=== PATIENT | female | born 1990 | race Caucasian/White ===

== ENCOUNTER → 2023-08-17 15:03 | Outpatient (CLI) | payer BC, SELFPAY | PROVIDERS: PCP Nurse Practitioner Family; Visit Provider Nurse Practitioner Family | DX: R40.0 Somnolence (principal); G47.30 Sleep apnea, unspecified; R06.83 Snoring | CPT/HCPCS: G0399 ==

== ENCOUNTER 2023-12-29 12:08 | Outpatient (CLI) | payer BC, SELFPAY ==
[2023-12-29 14:28] LABS: HCG,Quantitative < 2 mIU/ml (0-5.42)
== END 2023-12-29 23:59 | disposition home or self-care (01) ==
LOC: LAB 12:10
PROVIDERS: PCP Nurse Practitioner Family; Visit Provider Obstetrics & Gynecology
DX: N92.6 Irregular menstruation, unspecified (principal)
CPT/HCPCS: 36415; 84702

== ENCOUNTER 2024-04-30 16:34 | Outpatient (CLI) | payer BC, SELFPAY ==
[2024-04-30 22:40] LABS: Basophils % 0.6 % (0.1-2.0); Eosinophils # 0.1 K/mm3 (0.0-0.4); Eosinophils % 1.4 % (0.1-12.0); Hematocrit 40.9 % (37.0-47.0); Hemoglobin 14.1 g/dL (12.2-16.2); Lymphocytes # 1.3 K/mm3 (0.7-4.5); Lymphocytes % 18.3 % (10-50); Mean Corpuscular HGB Conc 34.4 g/dL (31.8-35.4); Mean Corpuscular Hemoglobin 30.1 pg (27.0-31.2); Mean Corpuscular Volume 87.6 fl (81-99); Mean Platelet Volume 9.5 fl (7.4-10.4); Monocytes # 0.5 K/mm3 (0.1-1.0); Monocytes % 6.3 % (1.7-9.3); Neutrophils # 5.2 K/mm3 (1.8-7.8); Neutrophils % 73.3 % (37.0-80.0); Platelet Count 245 K/mm3 (142-424); Red Blood Count 4.67 M/mm3 (4.20-5.40); Red Cell Distribution Width 13.8 % (11.5-17.5); White Blood Count 7.1 K/mm3 (4.8-10.8)
[2024-04-30 23:21] LABS: Albumin Level 4.7 g/dl (3.5-5.0); Chloride 102 mmol/L (98-107); Potassium 4.3 mmoL/L (3.5-5.1); Sodium 135 mmol/L (136-145)
[2024-04-30 23:23] LABS: Blood Urea Nitrogen 11 mg/dl (7-17)
[2024-04-30 23:24] LABS: Alanine Aminotransferase 15 U/L (12-78); Alkaline Phosphatase 34 U/L (38-126); Anion Gap 13.3 mEq/L (5-15); Aspartate Amino Transferase 27 U/L (14-36); Bilirubin,Total 0.4 mg/dl (0.2-1.3); Carbon Dioxide 24 mmol/L (22.0-30.0); Estimated Glomerular Filt Rate 81 ml/min (>60); GFR (African American) 98 ML/MIN (>60); Globulin 2.4 g/dL (1.3-3.2); Iron 120 ug/dL (37-170); Total Protein,Serum 7.1 g/dl (6.3-8.2)
[2024-04-30 23:25] LABS: Calcium 9.5 mg/dl (8.4-10.2); Glucose 65 mg/dl (74-100)
[2024-04-30 23:33] LABS: Total Iron Binding Capacity 344 ug/dL (265-497)
[2024-05-01] LABS: Ferritin 18.4 ng/ml (6.24-137)
[2024-05-01 00:16] LABS: Thyroid Stimulating Hormone 1.12 uIU/mL (0.465-4.68)
[2024-05-14 19:09] LABS: 1,25 Dihydroxy Vitamin D 72 pg/mL (.); 1,25-Dihydroxy, Vitamin D-2 <10 pg/mL (.); 1,25-Dihydroxy, Vitamin D-3 72 pg/mL (.)
== END 2024-04-30 23:59 | disposition home or self-care (01) ==
LOC: LAB 16:38
PROVIDERS: PCP Nurse Practitioner Family; Visit Provider Nurse Practitioner Family
DX: L65.9 Nonscarring hair loss, unspecified (principal); R53.83 Other fatigue
CPT/HCPCS: 36415; 80050; 80053; 82652; 82728; 83540; 83550; 84443; 84481; 85025

== ENCOUNTER 2025-05-17 10:25 | Outpatient (CLI) | payer BC, SELFPAY ==
--- OUTSIDE RECORDS SUMMARY | 2025-05-20 10:38 | XMS_ITS | Patient Health Record ---
Author Organization [facility] Address [address] [place] [id number] Care Team Providers Care Filling Machine Tender Name Role Phone Alexandre Aranda Primary Care Provider Lorna Dee Unavailable [phone] Reason For Referral No Information Plan Of Treatment No Information Insurance Providers Payer Name Payer Address Payer Phone Subscriber Number Group Number Insured Name Patient Relationship to Insured Coverage Start Date Coverage End Date [employer] [address] [place] [address] [id number] Arias Henley Self - patient is the insured Medical (General) History Surgical History Surgery Date(Month/Year) Newcomb Teeth Removal 2005
--- OUTSIDE RECORDS SUMMARY | 2025-05-20 10:38 | XMS_ITS | Clinical Summary ---
Author Organization [facility]stem Address [address] [place] [address] Care Team Providers Care Human Resource Manager Name Role Phone Unavailable Primary Care Provider [...]
--- OUTSIDE RECORDS SUMMARY | 2025-05-20 10:38 | XMS_ITS ---
Author Organization Unknown ENCOUNTERS Encounter Performer Location Date Diagnosis Diagnosis Status Emergency [facility] [address] [place] [address] [id number] JULIANN Pre Admit [facility] [address] [place] [address] [id number] *Note: Encounters from your own facility or health system may be excluded. Allergies, Adverse Reactions, Alerts Allergen Type Severity Identification Date Medications Name Date Quantity Days Supplied GPI Number
== END 2025-05-17 23:59 ==
LOC: LAB.DROPOF 05-20 10:26
PROVIDERS: PCP Nurse Practitioner Family; Visit Provider Nurse Practitioner
DX: R35.0 Frequency of micturition (principal)
CPT/HCPCS: 87086; 87088; 87186

== ENCOUNTER 2025-05-17 15:24 | Emergency (ER) | payer BC, SELFPAY ==
[2025-05-17 15:28] VITALS: BP 134/71; PULSE 86; RESP 18; TEMP 36.8; O2SAT 100; BMI 23.6
--- OUTSIDE RECORDS SUMMARY | 2025-05-17 15:47 | XMS_ITS | Clinical Summary ---
Author Organization [facility]stem Address [address] [place] [address] Care Team Providers Care Beading Installer Name Role Phone Unavailable Primary Care Provider Unavailabl e Social History Tobacco Use Types Packs/Day Years Used Date Smoking Tobacco: Never Assessed Abuse Screen Answer Date Recorded Unsafe at Home or Work/School Not on file Feels Threatened by Someone? Not on file 03/2023 Does Anyone Keep You from Co ntacting Others or Doint Things Outside the Home? Not on file 04/25/2023 Physical Sign of Abuse Present Not on file 1 Housing Stability Answer Date Recorded Current Living Arrangements Not on file 03/2023 Potentially Unsafe Housing Conditions Not on kalani e 04/25/2023 Family and Community Support Answer Say e Recorded Help with Day-to-Day Activities Not on file 04/25/2023 Lonely or Isolated Not on file 04/25/2023 Employment Answer Date Recorded Do you want help finding or keeping work or a fabiano b? Not on file 04/25/2023 Disabilities Answer Date Recorded Concentrating, Remembering, or Making Decisions Difficulty Not on file 04/25/2023 Doing Errands Independently Difficulty Not on fi le 04/25/2023 Education Answer Date Recorded Help with school or training? Not on file Preferred Language Not on file 04/25/2023 Comments Unknown Sex and Gender Information Value Date Recorded Sex Assigned at Not on file Legal Sex Female 1:15 PM EDT Gender Identity Not on file Sexual Orientation Not on file Plan of Treatment Health Maintenance Due Date Last Done Comments ANNUAL PHYSICAL 1988 Annual Gynecologic Pelvic an d Breast Exam 1988 HEPATITIS C SCREENING 1988 TDAP/TD VACCINES (1 - Tdap) 01/18/2007 INFLUENZA VACCINE 02/15/2025 Pneumococcal Vaccine 0-49 Aged Out No longer eligible based on patient's age to complete this topic
--- NOTE | 2025-05-17 15:49 | CT_ITS ---
PROCEDURE INFORMATION: Exam: CT Abdomen And Pelvis With Contrast Exam date and time: 05/17/2025 4:21 PM Age: 35 years old Clinical indication: Abdominal pain; Flank; Right; Additional info: Right flank TECHNIQUE: Imaging protocol: Computed tomography of the abdomen and pelvis with contrast. Radiation optimization: All CT scans at this facility use at least one of these dose optimization techniques: automated exposure control; mA and/or kV adjustment per patient size (includes targeted exams where dose is matched to clinical indication); or iterative reconstruction. Contrast material: ISOVUE; Contrast volume: 75 ml; Contrast route: IV; COMPARISON: No relevant prior studies available. FINDINGS: Liver: Normal. No mass. Gallbladder and biliary ducts: Normal. No calcified stones. No ductal dilation. Pancreas: Normal. No ductal dilation. Spleen: Normal. No splenomegaly. Adrenal glands: Normal. No mass. Kidneys and ureters: Normal. No hydronephrosis. Stomach and bowel: Unremarkable. No obstruction. No mucosal thickening. Appendix: No evidence of appendicitis. Intraperitoneal space: Unremarkable. No free air. No significant fluid collection. Vasculature: Unremarkable. No abdominal aortic aneurysm. Lymph nodes: Unremarkable. No enlarged lymph nodes. Urinary bladder: Unremarkable as visualized. Reproductive: Unremarkable as visualized. Bones/joints: Unremarkable. No acute fracture. Soft tissues: Unremarkable. IMPRESSION: No acute findings.
--- NOTE | 2025-05-17 15:52 | ED_ITS ---
<Statement entered by Bere Robledo DO - 05/17/25 19:38> I was consulted by the MONO, and we discussed the complexity of problems being addressed. I approve the treatment and management plan for this patient's care in the emergency department, thus performing a substantial portion of the medical decision making. Bere Robledo DO Discharge Plan Disposition Patient Disposition: Home, Self-Care Prescriptions Prescriptions: New ketorolac 10 mg tablet 10 mg PO Q8H 5 Days Qty: 15 0RF ondansetron 4 mg tablet,disintegrating 4 mg PO Q8H 5 Days Qty: 15 0RF No Action ferrous sulfate [FeroSul] 325 mg (65 mg iron) tablet 325 mg PO DAILY spironolactone 50 mg tablet 50 mg PO DAILY Patient Comments: TAKE 1 TABLET BY MOUTH ONCE A DAY Tyblume 0.1 mg- 20 mcg tablet,chewable 1 tab PO DAILY Qty: 84 4RF phenazopyridine [Pyridium] 200 mg tablet 200 mg PO Q8H 2 Days Qty: 6 0RF cefdinir 300 mg capsule 300 mg PO BID 10 Days Qty: 20 0RF Referrals Follow up/Referrals: Jina Alejo APRN [Primary Care Provider, Medical] - See instructions Activity Restrictions/Add. Instructions Additional Instructions/Restrictions: Increase fluids and rest. Take meds as directed. Continue to take Omnicef and Pyridium as directed. Take Zofran as needed and Toradol as needed for pain and nausea. If any problems or concerns please return to the ED. Clinical Impressions Clinical Impression: UTI (urinary tract infection) Qualifiers: Urinary tract infection type: site unspecified Hematuria presence: with hematuria Qualified Code(s): N39.0 - Urinary tract infection, site not specified Instructions Patient Instructions: Urinary Tract Infection Print Language Print Language: Bengali Discharge ED Provider: Bere Robledo General Adult HPI General Chief complaint: PAIN Stated complaint: lower back pain radiating to front Time Seen by Provider: 05/17/25 15:46 Mode of Arrival: Ambulatory Source of Information: Patient Description of Symptoms (Recalled from ER Triage Doc. by RN): patient presents to the ED for right lower back pain that started 4 days ago. patient stated she went to the [facility] today and was prescribed 2 antibiotics for a UTI. Patinet stated the pain has just became unbearable prompting her visit. History of Present Illness HPI narrative: 35-year-old female presents to the ED today for complaint of lower abdominal pain that radiates to her right mid back. This started 4 days ago along with her urinary symptoms. She went to the urgent treatment center this morning and was given antibiotics. She has taken 1 dose. She got sick after that 1 dose. She says that pain has increased from a 7 to a 10. She said that she is nauseous and the pain is worse. She did have blood in her urine this morning at the [facility]. Related Data Home Medications ?Medication ?Instructions ?Recorded ?Confirmed ferrous sulfate 325 mg (65 mg 325 mg PO DAILY 09/02/23 05/17/25 iron) tablet (FeroSul) spironolactone 50 mg tablet 50 mg PO DAILY 12/17/24 Previous Rx's ?Medication ?Instructions ?Recorded levonorgestrel 0.1 mg-ethinyl 1 tab PO DAILY #84 tabs 12/17/24 estradiol 20 mcg chewable tablet (Tyblume) cefdinir 300 mg capsule 300 mg PO BID 10 days #20 ca ps 05/17/25 ketorolac 10 mg tablet 10 mg PO Q8H 5 days #15 tabs 05/17/25 ondansetron 4 mg disintegrating 4 mg PO Q8H nausea and vomiting 5 05/17/25 tablet days #15 tabs phenazopyridine 200 mg tablet 200 mg PO Q8H 2 days #6 tabs 05/17/25 (Pyridium) Allergies Allergy/AdvReac Type Severity Reaction Status Date / Time No Known Allergies Allergy Verified 05/17/25 09:06 [facility] Disclaimer: The information contained in this section may have been updated after the patient was seen, as this information can be updated by other users. Medical History (Updated 05/17/25 @ 17:29 by Kimber Wray (ED), HEADER BOSS) UTI (urinary tract infection) Strep throat Weight gain Decreased libido Fatigue Cystic acne Surgical History Imogene teeth removed Family History Grandmother Cancer Other Hypertension Social History Smoking Status: Never smoker alcohol intake: never current occupational status: employed Travel in the last 8 weeks?: None household members: family housing: house Have you lived/traveled outside US in past 30 days?: No Contact w/someone who lives/traveled outside US past 30 days?: No Exposure to someone with infectious disease in past 14 days?: No Do you have a fever (greater than 100.4 F or 38 C)?: No Have you tested positive for COVID-19?: No Exposed to someone with COVID-19 in past 14 days?: No Do you have a sore throat?: No Do you have a cough?: No Do you have any weakness?: No Do you have any diarrhea?: No Are you experiencing any unusual bleeding?: No Do you have any muscle aches/pain?: No Do you have any abdominal pain?: No Are you experiencing loss of taste or smell?: No ROS Obtained: Yes Systems reviewed as appropriate & no additional complaints except as documented Constitutional Constitutional: Reports as per HPI Physical Exam General General appearance: alert and in distress Head Head exam: normocephalic Eye Eye exam: Present PERRL and EOMI ENT ENT exam: Present normal oropharynx and mucous membranes moist Neck Neck exam: Present full ROM and trachea midline Respiratory Respiratory exam: Present normal lung sounds bilaterally Cardiovascular Cardiovascular exam: Present regular rate, normal rhythm, normal heart sounds, +S1 and +S2 Abdominal Exam Abdominal exam: Present soft and normal bowel sounds Extremities Exam Extremities exam: Present full ROM and normal capillary refill Back Exam Back exam: Present CVA tenderness (R) Neurological Exam Neurological exam: Present alert and oriented X3 Skin Skin exam: Present warm and dry Medical Decision Making Medical Records Screening: Per USPSTF and CDC recommendations, given the prevalence of disease in our region, it is our hospital?s policy to screen for HIV and viral Hepatitis for all patients aged 18 and over and those with ongoing risk factors. Jorge Inquiry Pt receiving controlled substance: No Jorge was queried for this patient: No Vital Signs: 05/17/25 15:28 05/17/25 16:00 05/17/25 17:41 Temperature 98.2 F 98.2 F Temperature Source Oral Oral Pulse Rate 73 79 Pulse Rate [Right Radial] 86 Respiratory Rate 18 18 Blood Pressure 113/88 114/77 Blood Pressure [Right Arm] 134/71 Blood Pressure Mean 93 Blood Pressure Mean [Right Arm] 92 Blood Pressure Source Automatic Cuff Blood Pressure Source [Right Arm] Automatic Cuff Blood Pressure Position Sitting Blood Pressure Position [Right Arm] Sitting 02 Sat by Pulse Oximetry 100 100 Oxygen Delivery Method Room Air Room Air Lab Data Lab Results 05/17/25 15:38: Urine Color Yellow, Urine Appearance Clear, Urine pH 6.5, Ur Specific [place] 1.015, Urine Protein 3+ A, Urine Glucose (UA) Trace, Urine Ketones Negative, Urine Blood 2+ A, Urine Nitrate Positive A, Urine Bilirubin Negative, Urine Urobilinogen 4.0, Ur Leukocyte Esterase 3+ A, Urine RBC None, Urine WBC Tntc, Ur Squamous Epith Cells None, Urine Bacteria 2+ 05/17/25 15:44: WBC 8.9, RBC 4.32, Hgb 12.8, Hct 38.0, MCV 88.0, MCH 29.6, MCHC 33.7, RDW 12.4, Plt Count 228, MPV 10.6 H, Neut % (Auto) 77.2, Lymph % (Auto) 11.9, [place] % (Auto) 10.1 H, Eos % (Auto) 0.2, Baso % (Auto) 0.4, Neut # (Auto) 6.9, Lymph # (Auto) 1.1, [place] # (Auto) 0.9, Eos # (Auto) 0.0, Baso # (Auto) 0.0, Sodium 136, Potassium 4.0, Chloride 99, Carbon Dioxide 28, Anion Gap 13.0, BUN 11, Creatinine 1.00, Estimated Creat Clear 78, Estimated GFR 62, Est GFR ( Amer) 75, Glucose 109 H, Calcium 9.2, Magnesium 1.9, Total Bilirubin 0.5, AST 25, ALT 15, Alkaline Phosphatase 55, Total Protein 8.0, Albumin 3.8, G lobulin 4.2 H, Albumin/Globulin Ratio 0.9 L, Lipase 68, Serum HCG, Qual Negative 05/17/25 15:44 05/17/25 15:44 Orders (Tests/Meds): ED MEDICATIONS Discontinued Medications Generic Name Dose Route Start Last Admin Trade Name Freq PRN Reason Stop Dose Admin Sodium Chloride 1,000 mls @ 999 mls/hr 05/17/25 15:50 05/17/25 16:57 Sod Chlor 0.9% 1000ml Bag IV 05/17/25 16:50 Infused .Q1H1M ONE Infusion Ceftriaxone Sodium 2 gm/ 100 mls @ 200 mls/hr 05/17/25 16:45 05/17/25 17:39 Sodium Chloride IV 05/27/25 16:44 Infused Q24H VISHAL Infusion Iopamidol 75 ml 05/17/25 16:17 05/17/25 16:17 Iopamidol-370 (76%);100ml Bottle IV 05/17/25 16:18 75 ml ONCE ONE Administration Ketorolac Tromethamine 30 mg 05/17/25 15:50 05/17/25 15:56 Ketorolac 30mg/Ml Vial IV 05/17/25 15:51 30 mg ONCE ONE Administration Morphine Sulfate 4 mg 05/17/25 15:50 05/17/25 17:11 Morphine 4mg/Ml Syringe IV 05/17/25 15:51 Not Given ONCE ONE Ondansetron HCl 4 mg 05/17/25 15:50 05/17/25 15:56 Ondansetron 4mg/2ml Vial IV 05/17/25 15:51 4 mg ONCE ONE Administration Sodium Chloride 10 ml 05/17/25 16:17 05/17/25 16:17 Sodium Chloride 0.9% 10ml Syr (Rad Only) IV 06/16/25 16:16 10 ml NEEDED PRN Administration Maintain IV Site ORDERS Category Date Time Status CT abdomen pelvis w con Stat Cat Scan 05/17/25 15:49 Completed CBC [Complete Blood Count Auto Diff] Stat Lab 05/17/25 15:44 Completed Comprehensive Metabolic Panel Stat Lab 05/17/25 15:44 Completed HCG Qualitative, Serum Stat Lab 05/17/25 15:44 Completed Lipase Stat Lab 05/17/25 15:44 Completed Magnesium Stat Lab 05/17/25 15:44 Completed Urinalysis and Microscopic Stat Lab 05/17/25 15:38 Completed Medical Decision Narrative: patient is a 35-year-old female presenting to the emergency department for evaluation of low back pain radiating to the front. Patient is hemodynamically stable and nontoxic-appearing upon arrival, afebrile. Differential diagnosis includes pyelonephritis, UTI, kidney stone, among others. Workup will be conducted with hematologic labs, specific imaging, provocative tests. Initial inventions include crystalloid bolus, analgesics, antibiotics, etc. . Initial workup reviewed by me hematologic labs are remarkable forWhite blood cell count 8.9, urine showed 3+ protein, trace of glucose, 2+ blood positive nitrite 3+ leuks too numerous to count white blood cells and 2+ bacteria. I am treating that with 2 g of Rocephin IV and will treat with cefdinir which she has already been given by urgent treatment center. Her CT scan showed nothing acute. We will give her the iv antibiotic and then let her go home with strict return precautions. Critical Care Critical Care Time Critical Care Time: No
[2025-05-17 15:55] LABS: Microscopic, Urine URINE MICROSCOPIC (MICROSCOPIC)
[2025-05-17] MEDS: ONDANSETRON 4MG/2ML VIAL 4 MG IV (15:56)
[2025-05-17] MEDS: 0.9 % SODIUM CHLORIDE 1000ML 1,000 ML 999 ML IV (15:56)
[2025-05-17] MEDS: KETOROLAC 30MG/ML VIAL 30 MG IV (15:56)
[2025-05-17 16:00] VITALS: BP 113/88; PULSE 73; O2SAT 100
[2025-05-17 16:03] LABS: Bilirubin,Urine Negative (Negative); Color,Urine YELLOW (Yellow); Glucose,Urine (UA) TRACE (Negative); Ketones,Urine Negative (Negative); Leukocyte Esterase,Urine 3+ (Negative); PH,Urine 6.5 (5.0-8.5); Protein,Urine 3+ (Negative); Specific Gravity, Urine 1.015 (1.005-1.030); Urobilinogen,Urine 4.0 EU/dl (0.2)
[2025-05-17 16:05] LABS: Hematocrit 38.0 % (37.0-47.0); Hemoglobin 12.8 g/dL (12.2-16.2); Immature Granulocytes % 0.2 %; Mean Corpuscular HGB Conc 33.7 g/dL (31.8-35.4); Mean Corpuscular Hemoglobin 29.6 pg (27.0-31.2); Mean Corpuscular Volume 88.0 fl (81-99); Nucleated Red Blood Cells % 0 %; Platelet Count 228 K/mm3 (142-424); Red Blood Count 4.32 M/mm3 (4.20-5.40); Red Cell Distribution Width-SD 40.3 fL; White Blood Count 8.9 K/mm3 (4.8-10.8)
[2025-05-17 16:11] LABS: HCG Qualitative, Serum Negative (Negative)
[2025-05-17 16:13] LABS: Alanine Aminotransferase 15 U/L (12-78); Albumin Level 3.8 g/dl (3.5-5.0); Albumin/Globulin Ratio 0.9 (1.1-1.8); Alkaline Phosphatase 55 U/L (38-126); Anion Gap 13.0 mEq/L (5-15); Aspartate Amino Transferase 25 U/L (14-36); Bilirubin,Total 0.5 mg/dl (0.2-1.3); Blood Urea Nitrogen 11 mg/dl (7-17); Calcium 9.2 mg/dl (8.4-10.2); Carbon Dioxide 28 mmol/L (22.0-30.0); Chloride 99 mmol/L (98-107); Creatinine Clearance Estimated 78 mL/min (50-200); Creatinine,Serum 1.00 mg/dl (0.52-1.04); Estimated Glomerular Filt Rate 62 ml/min (>60); GFR (African American) 75 ML/MIN (>60); Globulin 4.2 g/dL (1.3-3.2); Glucose 109 mg/dl (74-100); Lipase 68 U/L (23-300); Magnesium 1.9 mg/dl (1.6-2.3); Potassium 4.0 mmoL/L (3.5-5.1); Sodium 136 mmol/L (136-145); Total Protein,Serum 8.0 g/dl (6.3-8.2)
[2025-05-17 16:13] LABS: WBC,Urine TNTC #/hpf (0-3)
[2025-05-17 16:14] LABS: Bacteria,Urine 2+ /lpf
[2025-05-17] MEDS: SODIUM CHLORIDE 0.9% 10ML SYR (RAD ONLY) 10 ML IV (16:17)
[2025-05-17] MEDS: IOPAMIDOL-370 (76%);100ML BOTTLE 75 ML IV (16:17)
[2025-05-17 17:41] VITALS: BP 114/77; PULSE 79; RESP 18; TEMP 36.8; O2SAT 99
== END 2025-05-17 17:42 | disposition home or self-care (01) ==
PROVIDERS: Nurse Practitioner; Emergency Provider Student in an Organized Health Care Education/Training Program; PCP Nurse Practitioner Family
DX: N39.0 Urinary tract infection, site not specified (principal); R10.30 Lower abdominal pain, unspecified; M54.59 Other low back pain; R31.9 Hematuria, unspecified
CPT/HCPCS: 74177; 80053; 81001; 83690; 83735; 84703; 85025; 96361; 96365; 96375; 99284; J0696; J1885; J2405; J7030; Q9967